=== PATIENT | female | born 1985 | race Two or more races ===

== ENCOUNTER 2024-05-30 14:20 | Emergency (ER) | payer BC, SELFPAY ==
--- NOTE | 2024-05-30 14:39 | EDNOTE_ITS ---
ED Dizzyness RME/HPI General Chief Complaint: Dizziness Stated Complaint: DIZZINESS, NAUSEA, BODY HEAVINESS W/ TINGLY ARMS Time Seen by Provider: 05/30/24 14:26 Arrival date/time: 05/30/24 14:20 RME / HPI RME / HPI Narrative: DR. CRUZ MAIN ED EVALUATION: This section includes all my notes and documentations, including HPI, PE, and ED course.? Maxx Cruz MD HPI: 38 year old female with no past medical history presents to the Emergency Department with a couple hour history of intense fear, pounding and racing heart, sweating, chills, shaking, trouble breathing, chest pain, stomach pain, nausea, numbness and tingling in the hands and feet and face, confusion, hot flashes, and feeling faint. No other complaints. ROS: All negative except as documented in HPI. General:? Alert and oriented.? Appears anxious. Eyes:? Conjunctivae and lids clear.? EOMI.? PERRL. ENT:? No nasal congestion.? Pharynx normal.? Tympanic membrane normal loraine aterally.??? Neck:? Supple.? No carotid bruit.? No JVD.?? Heart:? RRR.? Lungs:? No respiratory distress.? Good air movement.? No rhonchi, wheezing, rales.?? Abdomen:? Soft and nontender.? Normal bowel sounds.? No distension.? No rebound or guarding.?? Back:? No CVA tenderness.?? Legs:? No clubbing, cyanosis, edema.? Skin:? Warm and dry.?? Neuro:? Alert and oriented X 3.? Cranial Nerves II-XII grossly intact.? No peripheral motor deficits. I reviewed all diagnostic test results. My interpretation of the EKG is?Sinus rhythm (80 bpm) with nonspecific ST-T changes. My interpretation of the chest x-ray is no acute findings. My review of the head CT report is?no acute findings. Blood tests unremarkable. At this point, diagnoses include anxiety. Treatment here included Alprazolam 0.25 Mg Tablet Significant improvement noted. Recommended more outpatient workup. Based on my best medical judgment, made decision no further evaluation or treatment indicated at this time.? Patient understands and agrees to the discharge instructions customized and printed, see below. Discharge instructions from Dr. Cruz: 1. After extensive evaluation, there is no life-threatening condition.? Such as stroke or brain tumor or heart attack or pneumothorax (collapsed lung). 2. Your symptoms may be due to underlying stress or anxiety or nerves.? This is fairly common. 3. Take Xanax as needed.? Whether this helps or not will be valuable information to your private doctors. 4. See a private doctor on 05/31/2024 for recheck and further care. To make sure there is no serious underlying heart condition, ask to help you get more tests for your heart that cannot be done here in the ER.? Such as Holter Monitor (cardiac monitoring at home from a day to even a month), heart stress test (on treadmill or with medication), echocardiogram (imaging of your heart structures), heart catherization (checking for blockages in your heart arteries), and a referral to see a Computer Operator. 5. Seek immediate medical care with worsening or with any concerns.?? Maxx Cruz MD Related Data Home Medications ?Medication ?Instructions ?Recorded ?Confirmed albuterol sulfate 90 mcg/actuation 1 - 2 puffs IH Q 4- 6 H PRN #1 inh 09/24/08 08/02/18 aerosol inhaler (Ventolin HFA) ferrous sulfate 325 mg (65 mg 325 mg PO BID 08/02/18 0 08/02/18 iron) tablet (iron) fluticasone 100 mcg-salmeterol 50 1 puff inhalation Q1 2H 08/02/18 08/02/18 mcg/dose blistr powdr for inhalation (Advair Diskus) folic acid 1 mg tablet 1 mg PO QDAY 08/02/18 vit no.95-ferrous 1 tab PO QDAY 08/02/18 0511/13 fumarate 28 mg-folic acid 800 mcg tablet () Previous Rx's ?Medication ?Instructions ?Recorded alprazolam 0.25 mg tablet (Xanax) 0.25 mg PO BID PRN a nxiety #10 tabs 05/30/24 Allergies Allergy/AdvReac Type Severity Reaction Status Date / Time No Known Allergies Allergy Verified 05/30/24 14:22 Course Quality Measures none Orders Category Date Time Status EKG (ED ONLY) *Do not use* NOW Care 05/30/24 14:[address] head/brain wo con Stat Exams 05/30/24 14:40 Completed EKG (ED Only) Stat Exams 05/30/24 14:40 Ordered XR chest 1V portable Stat Exams 05/30/24 14:40 Completed CBC Stat Lab 05/30/24 14:51 Completed CMP [Comprehensive Metabolic Panel] Stat Lab 05/30/24 14:51 Completed Magnesium Stat Lab 05/30/24 14:51 Completed TSH [Thyroid Stimulating Hormone] Stat Lab 05/30/24 14:51 Completed Troponin I Stat Lab 05/30/24 14:51 Completed ALPRazoLAM [Xanax] Med 05/30/24 14:40 Discontinued 0.25 mg PO X1 ONE Vital Signs Vital signs: Vital Signs Temperature 99 F 05/30/24 14:40 Pulse Rate 78 05/30/24 14:40 Respiratory Rate 18 05/30/24 14:40 Blood Pressure 174/97 H 05/30/24 14:40 Pulse Oximetry (%) 96 05/30/24 14:40 Oxygen Delivery Method Room Air 05/30/24 14:40 Dizziness MDM Narrative MDM Narrative:: I, Marah Dela Cruz am scribing for and in the presence of Dr. Cruz. Patient data External records reviewed:: [facility] previous records (Reviewed OB discahrge summary dated 08/10/18.) Clinical information provided by:: patient Social determinants that could affect healthcare access:: none Patient has the following chronic illnesses:: Denies any PMHx, surgeries, daily medications, or known allergies. How is presenting disease/condition affected by chronic disease/condition?: no chronic disease Evaluation data The following diagnostics were reviewed and interpreted by me:: lab results, radiology exam(s) and EKG tracing(s) (My interpretation of the EKG is: Sinus rhythm (80 bpm) with nonspecific ST-T changes. Maxx Cruz MD) Lab and/or radiology exams considered but not ordered:: none Interpretation Summary: Normal diagnostics Medications / Prescriptions Medications or Prescriptions considered but not ordered:: none Medication administrations:: Medication Administration History Discontinued Medications Alprazolam (Alprazolam 0.25 Mg Tablet) 0.25 mg PO X1 ONE Stop: 05/30/24 14:41 Last Admin: 05/30/24 16:19 Dose: 0.25 mg Documented By: CAMERON Alprazolam 0.25 Mg Tablet Consultations Consultation(s) initiated? (list below): No Diagnosis Dizziness Differential Diagnosis: adverse reaction to drug, benign paroxysmal positional vertigo, orthostatic hypotension, vertebral basilar insufficiency, cerebrovascular accident, acute vestibular neuronitis, transient cerebral ischemia and other (syncope, MO, dehydration, electrolyte imbalance) Most likely diagnosis given after review of the tests above:: Anxiety Admission Indicated Admission indicated?: not indicated Explain why admission is indicated or not indicated:: There is no indication for admission. Admission Request Was there a request for admission?: No Disposition Plan Disposition Plan: Discharge Discharge Attestation Discharge Attestation: The patient and all family members were given an opportunity to ask questions and understood the discharge instructions. Discharge instructions specifically effects, indications for sooner follow up or return to the emergency department, and the expected course of current diagnosis. Patient condition: Stable Discharge Plan Plan Patient Disposition: HOME (Self Care) Prescriptions/Referrals Prescriptions/Med Rec: New alprazolam [Xanax] 0.25 mg tablet 0.25 mg PO BID PRN (Reason: anxiety) Qty: 10 0RF No Action albuterol sulfate [Ventolin HFA] 200 PUFF/INH HFA aerosol inhaler 1 - 2 puffs IH Q 4-6 H PRN Qty: 1 Patient Comments: TAKE 1-2 PUFFS EVERY 4-6 HOURS NEEDED FOR WHEEZING ferrous sulfate [iron] 325 mg (65 mg iron) Tablet 325 mg PO BID folic acid 1 mg Tablet 1 mg PO QDAY fluticasone propion-salmeterol [Advair Diskus] 100-50 mcg/dose Blister With Device 1 puff INHALATION Q12H PNV cmb#95-ferrous fumarate-FA [] 28 mg iron- 800 mcg Tablet 1 tab PO QDAY Referrals: Olga Hernández FNP-C [Primary Care Provider] - In 1 week Problem List Clinical Impression: Palpitations Patient/Caregiver Discharge Instructions Discharge Activity: activity as tolerated Education Materials: ED Anxiety Reaction, ED Panic Attack Additional Instructions: Discharge instructions from Dr. Michelle: 1. After extensive evaluation, there is no life-threatening condition.? Such as stroke or brain tumor or heart attack or pneumothorax (collapsed lung). 2. Your symptoms may be due to underlying stress or anxiety or nerves.? This is fairly common. 3. Take Xanax as needed.? Whether this helps or not will be valuable information to your private doctors. 4. See a private doctor on 05/31/2024 for recheck and further care. To make sure there is no serious underlying heart condition, ask to help you get more tests for your heart that cannot be done here in the ER.? Such as Holter Monitor (cardiac monitoring at home from a day to even a month), heart stress test (on treadmill or with medication), echocardiogram (imaging of your heart structures), heart catherization (checking for blockages in your heart arteries), and a referral to see a Computer Operator. 5. Seek immediate medical care with worsening or with any concerns.?? Print Language: Maltese Stand Alone Forms: [employer]ak[employer] Award Info., Patient Portal Info Letter
[2024-05-30 14:40] VITALS: BP 174/97; PULSE 78; RESP 18; TEMP 37.2; O2SAT 96; BMI 39.8
--- NOTE | 2024-05-30 14:40 | XR_ITS ---
Examination: CT brain head without contrast. 2-D sagittal coronal reconstructions Date and time of exam:May 30, 2024 1615 hours INDICATIONS: Syncopal episode 4 hours ago CTDI: vol (mGy):51.7 DLP: (mGycm):1026 Technique: Multiple CT axial sections of the brain have been obtained, 5 mm slice thickness. Contrast has not been administered. 2-D sagittal, coronal reconstructions have been obtained Low dose protocols were performed. One or more of the following dose reduction techniques were used; automated exposure control, adjustment of the mA and/or KV according to patient size, use of iterative reconstruction technique. Findings: No significant ventricular enlargement. Intra-axial or extra-axial hemorrhage density is not seen. No mass effect or midline shift Basal cisterns are not remarkable. Fourth ventricle is midline. Cranial vault intact. Significant maxillary sinus disease Impression: Negative for acute hemorrhage, mass effect or midline shift Advise clinical correlation and follow-up accordingly
--- NOTE | 2024-05-30 14:40 | XR_ITS ---
Examination: Upright PA chest single view TECHNIQUE: Upright PA chest single view Exam date and time: May 30, 2024 1511 hours Comparison 12/20/2011 INDICATIONS: Chest tightness shortness of breath dizziness today. FINDINGS: Minimal prominence left ventricle Mild opacity in the lower lung zones and lingular segment obscuring detail left cardiac contour No pulmonary edema Intact osseous structures IMPRESSION: Suspicious for early bibasilar lingular segment left upper lobe pneumonia
[2024-05-30 15:22] LABS: Basophils # (Auto) 0.1 Thou/mm3 (0.0-0.2); Basophils % (Auto) 1 % (0-2.5); Eosinophils # (Auto) 0.1 Thou/mm3 (0.0-0.5); Eosinophils % (Auto) 1 % (0-10); Hematocrit 39.3 % (36.0-46.0); Hemoglobin 13.7 g/dL (12.0-16.0); Immature Granulocytes % (Auto) 0 % (0-0); Immature Granulocytes Auto 0.02 Thou/mm3 (0.00-0.00); Lymphocytes # (Auto) 1.9 Thou/mm3 (1.0-4.8); Lymphocytes % (Auto) 20 % (10-50); Mean Corpuscular HGB Conc 34.9 g/dl (31.0-37.0); Mean Corpuscular Hemoglobin 29.6 pg (25.0-35.0); Mean Corpuscular Volume 85 fL (80-100); Monocytes # (Auto) 0.5 Thou/mm3 (0.0-0.8); Monocytes % (Auto) 6 % (0-12); Neutrophils # (Auto) 6.9 Thou/mm3 (1.8-7.7); Neutrophils % (Auto) 73 % (37-80); Nucleated Red Blood Cell % 0 /100 WBC (0); Platelet Count 331 Thou/mm3 (140-440); RDW Standard Deviation 39.5 fL (36.4-46.3); Red Blood Count 4.63 Miln/mm3 (4.00-5.20); White Blood Count 9.5 Thou/mm3 (3.6-11.0)
[2024-05-30 15:42] LABS: Alanine Aminotransferase 18 U/L (10-49); Albumin, Serum 4.5 gm/dL (3.5-5.0); Albumin/Globulin Ratio 1.4 (1.2-2.2); Alkaline Phosphatase 141 U/L (46-116); Anion Gap 8 (7-16); Aspartate Amino Transferase 15 U/L (0-34); BUN/Creatinine Ratio 13 Ratio (12-20); Bilirubin,Total 0.3 mg/dL (0.3-1.2); Blood Urea Nitrogen 9 mg/dL (9-23); Calcium 9.8 mg/dL (8.3-10.6); Calcium (Corrected) 9.8 mg/dL (8.5-10.1); Chloride 105 mMol/L (98-107); Creatinine (Component) 0.7 mg/dL (0.6-1.3); Estimated Creatinine Clearance 121.9 mL/min (>60); Globulin 3.2 gm/dL (2.3-3.5); Glucose 107 mg/dL (74-106); Osmolality,Calculated 276 (275-295); Potassium 4.5 mMol/L (3.4-5.1); Sodium 139 mMol/L (136-145); Total Protein 7.7 gm/dL (5.7-8.2); Troponin I < 0.002 ng/mL (0.0-0.045); eGFR > 60 See Note
[2024-05-30] MEDS: ALPRazoLAM 0.25 MG TABLET PO (16:19)
== END 2024-05-30 17:43 | disposition home or self-care (01) ==
PROVIDERS: Emergency Provider Emergency Medicine; PCP Nurse Practitioner Family
DX: R00.2 Palpitations (principal)
CPT/HCPCS: 36415; 70450; 71045; 80053; 83735; 84443; 84484; 85025; 93005; 99284; A9270

== ENCOUNTER → 2024-12-31 | Outpatient (CLI) | payer BC, SELFPAY ==
--- NOTE | 2024-12-31 09:45 | XR_ITS ---
Examination: Screening digital mammography, bilateral Computer aided detection 3-D breast Tomosynthesis, bilateral Date and time of exam: December 31, 2024, 0932 hours No priors Indication: Screening Technique: Nonmagnified MLO, CC views of the breasts to been obtained, reconstructed from 3-D Tomosynthesis images. R2 computer aided detection program utilized for evaluation of suspicious masses and/or abnormal calcifications. 3-D Tomosynthesis images obtained. Findings: Scattered areas of fibroglandular density. Benign calcifications. No suspicious masses Impression: BI-RADS category II: Benign Findings. Recommend 1 year follow-up mammogram.
== END | disposition home or self-care (01) ==
LOC: CDIM 09:20
PROVIDERS: Referring Provider Nurse Practitioner Family; Visit Provider Nurse Practitioner Family
DX: Z12.31 Encounter for screening mammogram for malignant neoplasm of breast (principal); R92.323 Mammographic fibroglandular density, bilateral breasts; R92.1 Mammographic calcification found on diagnostic imaging of breast
CPT/HCPCS: 77063; 77067

== ENCOUNTER 2025-02-20 22:29 | Emergency (ER) | payer BC, SELFPAY ==
[2025-02-20 22:31] VITALS: BMI 41.5
[2025-02-20 22:44] VITALS: BP 157/82; PULSE 82; RESP 17; TEMP 36.8; O2SAT 96
--- NOTE | 2025-02-20 22:52 | XR_ITS ---
Examination: OB Transvaginal ultrasound of the pelvis, complete Technique: Transvaginal sonographic images pelvis performed using bates scale imaging Exam date and time: February 20, 2025, 11:54 p.m. INDICATIONS: Vaginal bleeding today recent positive test FINDINGS: Uterus 9.9 cm Intrauterine gestational sac 1.13 cm corresponds to 5 weeks 6 days gestational age No pole, no cardiac activity, no yolk sac Right ovary obscured by bowel gas Left ovary 2.3 cm arterial flow Subchorionic hemorrhage described by the technologist which is not well demonstrated IMPRESSION: Empty intrauterine gestational sac corresponding to 5 weeks 6 days gestational age Recommend short-term follow-up transvaginal pelvic sonography to document viability.
--- NOTE | 2025-02-20 22:53 | PD.EDVAGBL ---
ED OB Contraction Preg RMI/HPI General Chief complaint: Vaginal Bleeding Stated complaint: VAGINAL BLEEDING Time Seen by Provider: 02/20/25 22:51 Arrival date/time: 02/20/25 22:29 39F at approximately 5-7 weeks and with history of asthma presents to ED with 2 days of vaginal spotting. No dysuria or pain/cramping. Patient had recent US where gestational sac seen but no IUP. Beta HCG outpatient was 176 and 884. Limitations: no limitations Related Data Home Medications ?Medication ?Instructions ?Recorded ?Confirmed albuterol sulfate 90 mcg/actuation 1 - 2 puffs IH Q 4-6 H PRN #1 inh 09/24/08 08/02/18 aerosol inhaler (Ventolin HFA) ferrous sulfate 325 mg (65 mg 325 mg PO BID 08/02/18 08/02/18 iron) tablet (iron) fluticasone 100 mcg-salmeterol 50 1 puff inhalation Q12H 08/02/18 08/02/18 mcg/dose blistr powdr for inhalation (Advair Diskus) folic acid 1 mg tablet 1 mg PO QDAY 08/02/18 08/02/18 vit no.95-ferrous 1 tab PO QDAY 08/02/18 08/02/18 fumarate 28 mg-folic acid 800 mcg tablet () Previous Rx's ?Medication ?Instructions ?Recorded alprazolam 0.25 mg tablet (Xanax) 0.25 mg PO BID PRN anxiety #10 tabs 05/30/24 Allergies Allergy/AdvReac Type Severity Reaction Status Date / Time No Known Allergies Allergy Verified 02/20/25 22:31 Review of Systems Review of Systems Systems Reviewed: All systems reviewed, normal except as documented Genitourinary Genitourinary: Reports as per HPI and Reports abnormal vaginal bleeding Past Medical History Past Medical History NEUROLOGIC: Negative Neurological Disorders or Seizures CARDIAC: Negative Cardiac Disorders or Congestive Heart Failure RESPIRATORY: Positive Asthma (Daily inhaler); Negative Chronic Obstructive Pulmonary Disease (COPD) GASTROINTESTINAL: Negative Gastrointestinal Disorders, Hepatitis or Colorectal Cancer GENITOURINARY: Negative Genitourinary Disorders, Renal Disease or Prostate Cancer REPRODUCTIVE: Positive Previous Pregnancies (x1); Negative Breast Cancer or Testicular Cancer MUSCULOSKELETAL: Negative Musculoskeletal Disorders or Bone Cancer ENDOCRINE: Negative Endocrine Disorders, Diabetes Mellitus Type 1 or Diabetes Mellitus Type 2 HEMATOLOGIC: Negative Blood Disorders OTHER HISTORY: Positive Hospitalization (childbirth and asthma attack >11 years ago) and Chicken Pox (as child); Negative Autoimmune Disease, Down Syndrome, Developmental Delay, Falls, Blood Transfusions, Blood Transfusion Reaction, Anesthesia Reactions, Organ Transplant, Chemotherapy, Radiation Therapy, Hyperbaric Therapy, MRSA, Human Immunodeficiency Virus (HIV), Measles, Mumps, Rubella (Indian Measles), Pertussis, Clostridium Difficile, Breast Cancer, Cervical Cancer, Colorectal Cancer, Lung Cancer, Ovarian Cancer, Prostate Cancer or Testicular Cancer Family History FAMILY HISTORY: Positive Family Cardiac Disorders (Father-HTN); Negative Family Psychiatric Problems, Family Respiratory Disorders, Family Gastrointestinal Problems, Family Cancer, Family Surgery or Family Anesthesia Reaction Surgical History SURGICAL: Positive Section (X1); Negative Organ Transplant Social History SMOKING STATUS: Never smoker SECOND HAND EXPOSURE: No ED Exam General Limitations: Present no limitations General appearance: Present alert and in no apparent distress Head Head exam: Present atraumatic Neck Neck exam: Present normal inspection, full ROM and trachea midline Chest Chest inspection: Present normal inspection and symmetric chest wall rise Neurological Exam Neurological exam: Present alert and oriented X3 Psychiatric Psychiatric exam: Present normal affect and normal mood Skin Skin exam: Present warm, dry, intact and normal color Course Quality Measures none Orders Category Date Time Status US OB transvaginal Stat Exams 02/20/25 22:52 Taken Beta HCG,Quantitative Stat Lab 02/20/25 23:02 Completed CBC Stat Lab 02/20/25 23:02 Completed CMP [Comprehensive Metabolic Panel] Stat Lab 02/20/25 23:02 Completed Urinalysis, C/S if Indicated Stat Lab 02/20/25 23:32 Completed Vital Signs Vital signs: Vital Signs Temperature 98.2 F 02/20/25 22:44 Pulse Rate 82 02/20/25 22:44 Respiratory Rate 17 02/20/25 22:44 Blood Pressure 157/82 H 02/20/25 22:44 Pulse Oximetry (%) 96 02/20/25 22:44 O2 at 96% on RA and WNLs Vaginal Bleeding MDM Narrative MDM Narrative: 39F at approximately 5-7 weeks and with history of asthma presents to ED with 2 days of vaginal spotting. No dysuria or pain/cramping. Patient had recent US where gestational sac seen but no IUP. Beta HCG outpatient was 176 and 884. Physical exam reveals well-appearing female. Patient is afebrile, calm, and alert. Blood type is O+. Telerad US shows IUP but no pole, which may represent early . Small subchorionic hemorrhage. Beta HCG is around 16k, which is WNLs. No gross anemia or leukocytosis. BP noted to be quite high during initial and discharge vitals. Counseled to follow-up with [facility] if aspirin/pre-eclampsia prophylaxis is indicated as patient confirms no diagnosis of HTN outside of . Patient data External records reviewed:: [facility] previous records Clinical information provided by:: patient Social determinants that could affect healthcare access:: none Patient has the following chronic illnesses:: asthma How is presenting disease/condition affected by chronic disease/condition?: uneffected by Evaluation data The following diagnostics were reviewed and interpreted by me:: lab results and radiology exam(s) Lab and/or radiology exams considered but not ordered:: ordered Interpretation Summary: above Medications / Prescriptions Medications or Prescriptions considered but not ordered:: not ordered Medication administrations:: n/a Consultations Consultation(s) initiated? (list below): No Diagnosis Vaginal Bleeding Differential Diagnosis: missed , threatened , dysfunctional uterine bleeding, menometrorrhagia, incomplete , ectopic without intrauterine , vaginal bleeding and other (subchorionic hemorrhage) Most likely diagnosis given after review of the tests above:: subchorionic hemorrhage Admission Indicated Admission indicated?: not indicated Admission Request Was there a request for admission?: No Disposition Plan Disposition Plan: Discharge Discharge Attestation Discharge Attestation: The patient and all family members were given an opportunity to ask questions and understood the discharge instructions. Discharge instructions specifically effects, indications for sooner follow up or return to the emergency department, and the expected course of current diagnosis. Patient condition: Stable Discharge Plan Plan Patient Disposition: HOME (Self Care) Discharge Disposition comment: Stable Prescriptions/Referrals Prescriptions/Med Rec: No Action albuterol sulfate [Ventolin HFA] 200 PUFF/INH HFA aerosol inhaler 1 - 2 puffs IH Q 4-6 H PRN Qty: 1 Patient Comments: TAKE 1-2 PUFFS EVERY 4-6 HOURS NEEDED FOR WHEEZING ferrous sulfate [iron] 325 mg (65 mg iron) Tablet 325 mg PO BID folic acid 1 mg Tablet 1 mg PO QDAY fluticasone propion-salmeterol [Advair Diskus] 100-50 mcg/dose Blister With Device 1 puff INHALATION Q12H PNV no.95-ferrous fumarate-FA [] 28 mg iron- 800 mcg Tablet 1 tab PO QDAY alprazolam [Xanax] 0.25 mg tablet 0.25 mg PO BID PRN (Reason: anxiety) Qty: 10 0RF Referrals: Van Stein MD [Primary Care Provider, Obstetrics] - In 1 week Problem List Clinical Impression: Subchorionic hemorrhage, Elevated BP without diagnosis of hypertension Patient/Caregiver Discharge Instructions Education Materials: Bleeding During Early Additional Instructions: Please follow-up with PCP/OBYGN within 24-48 hours and return immediately if symptoms worsen. OBGYN may decide to put you on a baby aspirin later in this . Print Language: Panamanian Stand Alone Forms: Patient Portal Info Letter PA/PULP [employer] BLENDER Supervising Physician PA/[employer] BL[employer] Supervising Physician: Dr. Martinez
[2025-02-20 23:23] LABS: Basophils # (Auto) 0.1 Thou/mm3 (0.0-0.2); Basophils % (Auto) 1 % (0-2.5); Eosinophils # (Auto) 0.2 Thou/mm3 (0.0-0.5); Eosinophils % (Auto) 3 % (0-10); Hematocrit 40.0 % (36.0-46.0); Hemoglobin 13.3 g/dL (12.0-16.0); Immature Granulocytes Auto 0.01 Thou/mm3 (0.00-0.00); Lymphocytes # (Auto) 3.1 Thou/mm3 (1.0-4.8); Lymphocytes % (Auto) 33 % (10-50); Mean Corpuscular HGB Conc 33.3 g/dl (31.0-37.0); Mean Corpuscular Hemoglobin 28.9 pg (25.0-35.0); Mean Corpuscular Volume 87 fL (80-100); Monocytes # (Auto) 0.5 Thou/mm3 (0.0-0.8); Monocytes % (Auto) 5 % (0-12); Neutrophils # (Auto) 5.3 Thou/mm3 (1.8-7.7); Neutrophils % (Auto) 58 % (37-80); Nucleated Red Blood Cell # 0.00 Thou/mm3 (0.00-0.00); Nucleated Red Blood Cell % 0 /100 WBC (0); Platelet Count 271 Thou/mm3 (140-440); RDW Standard Deviation 42.3 fL (36.4-46.3); Red Blood Count 4.61 Miln/mm3 (4.00-5.20); White Blood Count 9.2 Thou/mm3 (3.6-11.0)
[2025-02-20 23:39] LABS: Alanine Aminotransferase 17 U/L (10-49); Albumin, Serum 4.6 gm/dL (3.5-5.0); Albumin/Globulin Ratio 1.6 (1.2-2.2); Alkaline Phosphatase 135 U/L (46-116); Anion Gap 9 (7-16); Aspartate Amino Transferase 14 U/L (0-34); BUN/Creatinine Ratio 10 Ratio (12-20); Bilirubin,Total 0.3 mg/dL (0.3-1.2); Blood Urea Nitrogen 12 mg/dL (9-23); Calcium 9.5 mg/dL (8.3-10.6); Calcium (Corrected) 9.5 mg/dL (8.5-10.1); Carbon Dioxide 26.7 mMol/L (20.0-31.0); Chloride 104 mMol/L (98-107); Creatinine (Component) 1.2 mg/dL (0.6-1.3); Estimated Creatinine Clearance 66.8 mL/min (>60); Globulin 2.9 gm/dL (2.3-3.5); Glucose 106 mg/dL (74-106); Osmolality,Calculated 279 (275-295); Potassium 4.4 mMol/L (3.4-5.1); Sodium 140 mMol/L (136-145); Total Protein 7.5 gm/dL (5.7-8.2); eGFR 58 See Note
[2025-02-20 23:50] LABS: Collection Type, Urine Clean Catch
[2025-02-20 23:56] LABS: Bilirubin,Urine Negative (Negative); Blood,Urine 3+ (Negative); Clarity,Urine Clear (Clear/Hazy); Color,Urine Lt-Yellow (Lt Yel-Yel); Culture Indicated,Urine Not Indicated; Glucose, Urine Negative (Negative); Ketones,Urine Negative (Negative); Leukocyte Esterase,Urine Negative (Negative); Nitrite,Urine Negative (Negative); PH,Urine 6.5 (5.0-7.0); Protein,Urine Negative (Neg - Trace); RBC,Urine 19 /hpf (0-3); Specific Gravity,Urine 1.027 (1.001-1.035); Squamous Epithelial Cell,Urine 3 /hpf (0-5); Urobilinogen,Urine Negative mg/dL (0.0-1.0); WBC,Urine 1 /hpf (0-5)
[2025-02-21 00:09] LABS: Beta HCG,Quantitative 16327 mIU/mL (<5.0)
--- NOTE | 2025-02-21 02:09 | PRELIM_ITS ---
Obstetric ultrasound (transvaginal) with Doppler. February 20, 2025 2354 hours Clinical history: Spotting; 6-7 weeks. LMP unknown. HCG pending. No prior study is available for comparison. Findings: There is an intrauterine gestational sac. The mean sac diameter is 1.1 cm, corresponding to 5 weeks and 6 days of gestational age. No yolk sac or pole is demonstrated at this time. There is a small subchorionic hemorrhage. The uterus measures 10 x 5.8 x 6.6. There is a 0.7 x 0.5 x 0.6 cm Nabothian cyst in the cervix. The right ovary is not visualized. The left ovary measures 2.3 x 1.5 x 1.6 cm. Left ovary demonstrate normal color flow signal on Doppler evaluation. No evidence of adnexal mass. There is no free fluid. Impression: Early intrauterine gestation. pole not seen at this time, which may be related to the early stage of gestation. Recommend followup for viability. Small subchorionic hemorrhage as described. Recommend follow-up. Report Electronically Signed By: Drake Weber 02/21/2025 2:08:49 AM [EST]
[2025-02-21 02:15] VITALS: BP 162/83; PULSE 67; RESP 18; TEMP 36.7; O2SAT 98
[2025-02-21 02:20] VITALS: RESP 18
== END 2025-02-21 02:23 | disposition home or self-care (01) ==
PROVIDERS: Physician Assistant; Emergency Provider Emergency Medicine; PCP Obstetrics & Gynecology
DX: O20.8 Other hemorrhage in early pregnancy (principal); O99.411 Diseases of the circulatory system complicating pregnancy, first trimester; R03.0 Elevated blood-pressure reading, without diagnosis of hypertension; O09.521 Supervision of elderly multigravida, first trimester; Z3A.01 Less than 8 weeks gestation of pregnancy
CPT/HCPCS: 36415; 76817; 80053; 81001; 84702; 85025; 99283

== ENCOUNTER 2025-02-23 07:00 | Emergency (ER) | payer BC, SELFPAY ==
[2025-02-23 07:00] VITALS: BMI 41.5
[2025-02-23 07:29] VITALS: BP 163/82; PULSE 77; RESP 22; TEMP 36.9; O2SAT 98
--- NOTE | 2025-02-23 07:45 | XR_ITS ---
Examination: Complete OB ultrasound, less than 14 weeks, transabdominal Date and time of exam: February 23, 2025, 0900 hours INDICATIONS: Vaginal bleeding and pelvic cramping beginning 4 days ago Technique: Obstetrical ultrasound images less than 14 weeks performed via transabdominal imaging Findings: Uterus 11.1 cm no uterine mass or intrauterine gestation Endometrial stripe 10 mm Ovaries obscured by bowel gas IMPRESSION: No uterine mass or intrauterine gestation Minimal fluid in the endometrium
--- NOTE | 2025-02-23 07:47 | EDNOTE_ITS ---
ED OB Contraction Preg RMI/HPI General Chief complaint: Vaginal Bleeding Stated complaint: VAG BLEED 6WKS Time Seen by Provider: 02/23/25 07:06 Arrival date/time: 02/23/25 07:00 Limitations: no limitations GARRETT / KEVIN SMYTH Complaint: abdominal pain and vaginal bleeding Onset (ago): day(s) Consistency: intermittent Location: pelvis Severity: moderate Quality: cramping Associated symptoms: vaginal bleeding Vaginal bleeding: clots : yes Number of weeks : 7 care: followed by OB GARRETT / KEVIN Narrative: 39F [id number] at approximately 5-7 weeks and with history of asthma presents to ED with ongoing vaginal spotting. No dysuria.. Patient had recent US where gestational sac seen but no IUP. Beta HCG outpatient was 176 and 884. States later had a blood test showing 16,000. However today woke up cramping and bleeding with clots. No hx of preclampsia or htn, at obs the bp was wnl. RH positive on labs from last week. Related Data Home Medications ?Medication ?Instructions ?Recorded ?Confirmed albuterol sulfate 90 mcg/actuation 1 - 2 puffs IH Q 4- 6 H PRN #1 inh 09/24/08 08/02/18 aerosol inhaler (Ventolin HFA) ferrous sulfate 325 mg (65 mg 325 mg PO BID 08/02/18 0 08/02/18 iron) tablet (iron) fluticasone 100 mcg-salmeterol 50 1 puff inhalation Q1 2H 08/02/18 08/02/18 mcg/dose blistr powdr for inhalation (Advair Diskus) folic acid 1 mg tablet 1 mg PO QDAY 08/02/18 vit no.95-ferrous 1 tab PO QDAY 08/02/18 05/0 11/13 fumarate 28 mg-folic acid 800 mcg tablet () Previous Rx's ?Medication ?Instructions ?Recorded alprazolam 0.25 mg tablet (Xanax) 0.25 mg PO BID PRN a nxiety #10 tabs 05/30/24 Allergies Allergy/AdvReac Type Severity Reaction Status Date / Time No Known Allergies Allergy Verified 02/20/25 22:31 Review of Systems Review of Systems Systems Reviewed: All systems reviewed, normal except as documented ED Exam General Limitations: Present no limitations General appearance: Present alert and in no apparent distress Eye Eye exam: Present normal appearance, PERRL and EOMI Respiratory Respiratory exam: Present normal lung sounds bilaterally Cardiovascular Cardiovascular exam: Present regular rate, normal rhythm and normal heart sounds Abdominal Exam Abdominal exam: Present soft and normal bowel sounds External exam: Present other (declined exam ) Extremities Exam Extremities exam: Present normal inspection and full ROM Back Exam Back exam: Present normal inspection and full ROM Psychiatric Psychiatric exam: Present normal affect and normal mood Skin Skin exam: Present warm, dry, intact and normal color Course Quality Measures none Orders Category Date Time Status US OB <= 14 weeks fetus Stat Exams 02/23/25 07:45 Completed Beta HCG,Quantitative Stat Lab 02/23/25 07:56 Completed CBC Stat Lab 02/23/25 07:56 Completed CMP [Comprehensive Metabolic Panel] Stat Lab 02/23/25 07:56 Completed UA [Urinalysis] Stat Lab 02/23/25 08:00 Completed Vital Signs Vital signs: Vital Signs Temperature 98.5 F 02/23/25 07:29 Pulse Rate 77 02/23/25 07:29 Respiratory Rate 22 H 02/23/25 07:29 Blood Pressure 163/82 H 02/23/25 07:29 Pulse Oximetry (%) 98 02/23/25 07:29 Oxygen Delivery Method Room Air 02/23/25 07:29 Vaginal Bleeding Patient data External records reviewed:: [facility] previous records Clinical information provided by:: patient and family Social determinants that could affect healthcare access:: other (specify) (no pcp appt on weekends ) Patient has the following chronic illnesses:: in advanced maternal age How is presenting disease/condition affected by chronic disease/condition?: exacerbated by Evaluation data The following diagnostics were reviewed and interpreted by me:: lab results and radiology exam(s) Lab and/or radiology exams considered but not ordered:: all imaging and labs considered were ordered Interpretation Summary: quants down trending 15k from 16k no anemia US no IUP Medications / Prescriptions Medications or Prescriptions considered but not ordered:: ibuprofen considered however given quants advised tylenol instead Medication administrations:: none Consultations Consultation(s) initiated? (list below): No Diagnosis Vaginal Bleeding Differential Diagnosis: missed , threatened , incomplete , ectopic without intrauterine and vaginal bleeding Most likely diagnosis given after review of the tests above:: incomplete Admission Indicated Admission indicated?: not indicated Admission Request Was there a request for admission?: No Disposition Plan Disposition Plan: Discharge Discharge Attestation Discharge Attestation: The patient and all family members were given an opportunity to ask questions an d understood the discharge instructions. Discharge instructions specifically effects, indications for sooner follow up or return to the emergency department, and the expected course of current diagnosis. Patient condition: Stable Discharge Plan Plan Patient Disposition: HOME (Self Care) Discharge Disposition comment: Follow-up with PCP in 2 days Prescriptions/Referrals Prescriptions/Med Rec: No Action albuterol sulfate [Ventolin HFA] 200 PUFF/INH HFA aerosol inhaler 1 - 2 puffs IH Q 4-6 H PRN Qty: 1 Patient Comments: TAKE 1-2 PUFFS EVERY 4-6 HOURS NEEDED FOR WHEEZING ferrous sulfate [iron] 325 mg (65 mg iron) Tablet 325 mg PO BID folic acid 1 mg Tablet 1 mg PO QDAY fluticasone propion-salmeterol [Advair Diskus] 100-50 mcg/dose Blister With Device 1 puff INHALATION Q12H PNV no.95-ferrous fumarate-FA [] 28 mg iron- 800 mcg Tablet 1 tab PO QDAY alprazolam [Xanax] 0.25 mg tablet 0.25 mg PO BID PRN (Reason: anxiety) Qty: 10 0RF Referrals: [facility])MD [Primary Care Provider, Family Practice] - In 1 week Problem List Clinical Impression: Incomplete Patient/Caregiver Discharge Instructions Education Materials: ED Miscarriage, Incomplete Print Language: Palauan Stand Alone Forms: Shakira Award Info., Patient Portal Info Letter PA/VACCINE MANAGER Supervising Physician PA/VACCINE MANAGER Supervising Physician: Dr. Magdaleno
[2025-02-23 08:05] LABS: Collection Type, Urine Clean Catch; WBC,Urine 0 /hpf (0-5)
[2025-02-23 08:05] LABS: Basophils # (Auto) 0.1 Thou/mm3 (0.0-0.2); Basophils % (Auto) 1 % (0-2.5); Eosinophils # (Auto) 0.2 Thou/mm3 (0.0-0.5); Eosinophils % (Auto) 2 % (0-10); Hematocrit 41.1 % (36.0-46.0); Hemoglobin 13.7 g/dL (12.0-16.0); Immature Granulocytes Auto 0.02 Thou/mm3 (0.00-0.00); Lymphocytes # (Auto) 3.0 Thou/mm3 (1.0-4.8); Lymphocytes % (Auto) 34 % (10-50); Mean Corpuscular HGB Conc 33.3 g/dl (31.0-37.0); Mean Corpuscular Hemoglobin 28.5 pg (25.0-35.0); Mean Corpuscular Volume 85 fL (80-100); Monocytes # (Auto) 0.4 Thou/mm3 (0.0-0.8); Monocytes % (Auto) 5 % (0-12); Neutrophils # (Auto) 5.1 Thou/mm3 (1.8-7.7); Neutrophils % (Auto) 58 % (37-80); Nucleated Red Blood Cell # 0.00 Thou/mm3 (0.00-0.00); Nucleated Red Blood Cell % 0 /100 WBC (0); Platelet Count 259 Thou/mm3 (140-440); RDW Standard Deviation 42.1 fL (36.4-46.3); Red Blood Count 4.81 Miln/mm3 (4.00-5.20); White Blood Count 8.8 Thou/mm3 (3.6-11.0)
[2025-02-23 08:26] LABS: Alanine Aminotransferase 15 U/L (10-49); Albumin, Serum 4.6 gm/dL (3.5-5.0); Albumin/Globulin Ratio 1.6 (1.2-2.2); Alkaline Phosphatase 119 U/L (46-116); Anion Gap 9 (7-16); Aspartate Amino Transferase 13 U/L (0-34); BUN/Creatinine Ratio 14 Ratio (12-20); Bilirubin,Total 0.5 mg/dL (0.3-1.2); Blood Urea Nitrogen 10 mg/dL (9-23); Calcium 9.0 mg/dL (8.3-10.6); Calcium (Corrected) 9.0 mg/dL (8.5-10.1); Carbon Dioxide 26.8 mMol/L (20.0-31.0); Chloride 105 mMol/L (98-107); Creatinine (Component) 0.7 mg/dL (0.6-1.3); Estimated Creatinine Clearance 114.5 mL/min (>60); Globulin 2.8 gm/dL (2.3-3.5); Glucose 102 mg/dL (74-106); Osmolality,Calculated 280 (275-295); Potassium 4.1 mMol/L (3.4-5.1); Sodium 141 mMol/L (136-145); Total Protein 7.4 gm/dL (5.7-8.2); eGFR > 60 See Note
[2025-02-23 08:40] LABS: Bilirubin,Urine Negative (Negative); Blood,Urine 3+ (Negative); Glucose, Urine Negative (Negative); Ketones,Urine Negative (Negative); Nitrite,Urine Negative (Negative); PH,Urine 6.5 (5.0-7.0); Protein,Urine 1+ (Neg - Trace); RBC,Urine 9300 /hpf (0-3); Specific Gravity,Urine 1.025 (1.001-1.035); Squamous Epithelial Cell,Urine 3 /hpf (0-5); Urobilinogen,Urine Negative mg/dL (0.0-1.0)
[2025-02-23 08:42] LABS: Clarity,Urine Bloody (Clear/Hazy); Color,Urine Red (Lt Yel-Yel)
[2025-02-23 08:43] LABS: Leukocyte Esterase,Urine Negative (Negative)
[2025-02-23 09:01] LABS: Beta HCG,Quantitative 15059 mIU/mL (<5.0)
[2025-02-23 10:44] VITALS: BP 148/79; PULSE 65; RESP 18; TEMP 36.9; O2SAT 100
== END 2025-02-23 11:10 | disposition home or self-care (01) ==
PROVIDERS: Physician Assistant; Emergency Provider Emergency Medicine; PCP Family Medicine
DX: O03.4 Incomplete spontaneous abortion without complication (principal)
CPT/HCPCS: 36415; 76801; 80053; 81001; 84702; 85025; 99283